=== PATIENT | male | born 1960 | race Caucasian/White ===

== ENCOUNTER → 2017-12-28 | Outpatient (CLI) | payer OTHER ==
[~2017-12-28] MED LIST: GABAPENTIN300 MG PO; HYDROCHLOROTH12.5 M3 PO; LEVAQUIN500 MG PO; METHADONE5 MG PO; OXYCODONE HCL10 MG PO; PERCOCET 10-321 EACH; PERCOCET 5/31 TABLET PO; PRILOSEC40 MG PO; ZESTRIL10 MG PO
== END | disposition home or self-care (01) ==
LOC: CDC 15:31
DX: Z01.810 Encounter for preprocedural cardiovascular examination (principal)
CPT/HCPCS: 93000